=== PATIENT | male | born 1965 | race Caucasian/White ===

== ENCOUNTER 2018-04-04 17:57 | Inpatient (IN) | END 2018-04-07 14:55 | disposition home or self-care (01) | DRG 684 ==

== ENCOUNTER 2019-03-10 11:11 | Day surgery (SDC) | payer MEDICARE, OTHER ==
[~2019-03-10] VITALS: Ht 165.1 cm; Wt 81.1 kg
[2019-03-10] VITALS (9 sets, daily range): BP systolic 98–159; BP diastolic 53–94; PULSE 84–92; RESP 13–21; Ht 165.1 cm; Wt 81.1 kg
[~2019-03-10 11:11] MED LIST: AMLO5TAB4 PO; ATOR20TA38 PO; CALC0.255 PO; CALC667C PO; CARV6.25 PO; ERGO500013 PO; FURO-110 PO; GABA100C14 PO; GLIM2TAB PO; HYDR-3672 PO; LOSA100T15 PO; LOSA25TA2 PO; NAPR-985 PO; NEPH PO; SITA50TA2 PO; [UNRECOGNIZED DRUG - CODE] PO
[2019-03-10] MEDS ORDERED: HEPARIN 1000 UNITS/ML 10 ML INJ ONE ×3 (11:39→16:21)
[2019-03-10] MEDS ORDERED: LIDOCAINE 1% (MPF) 30 ML INJ ONE ×2 (11:39→15:20)
[2019-03-10] MEDS ORDERED: GELATIN SIZE 100 SPONGE ONE (15:20)
[2019-03-10] MEDS ORDERED: THROMBIN 5000 UNIT (RECOTHROM) VIAL ONE (15:20)
[2019-03-10] MEDS ORDERED: BUPIVACAINE 0.5% (SDV) 30 ML INJ ONE (15:20)
[2019-03-10] MEDS ORDERED: ROPIVACAINE 0.5 % 30 ML VIAL ONE (15:32)
[2019-03-10] MEDS ORDERED: MIDAZOLAM 1 MG/ML 2 ML INJ ONE (15:35)
[2019-03-10] MEDS ORDERED: ACETAMINOPHEN 325 MG TAB PO PRN (17:00)
[2019-03-10] MEDS ORDERED: ONDANSETRON 4 MG INJ IV PRN ×2 (17:00→17:30)
[2019-03-10] MEDS ORDERED: ONDANSETRON 4 MG INJ ONE (17:03)
[2019-03-10] MEDS ORDERED: PROPOFOL 20 ML ONE (17:03)
[2019-03-10] MEDS ORDERED: LIDOCAINE 2% (SDV) 5 ML INJ ONE (17:03)
[2019-03-10] MEDS ORDERED: CEFAZOLIN 1 GM INJ ONE (17:03)
[2019-03-10] MEDS ORDERED: FENTAnyl 50 MCG/ML VIAL IV PRN (17:30)
[2019-03-10] MEDS ORDERED: HYDROmorphONE 1 MG/5 ML IV SYRINGE IV PRN ×2 (17:30)
== END 2019-03-10 18:44 | disposition home or self-care (01) ==
LOC: SDS 11:11
PROVIDERS: ATTEND Surgery
DX: N18.6 End stage renal disease (principal); I12.0 Hypertensive chronic kidney disease with stage 5 chronic kidney disease or end stage renal disease; E11.9 Type 2 diabetes mellitus without complications; E66.01 Morbid (severe) obesity due to excess calories; Z68.29 Body mass index [BMI] 29.0-29.9, adult
CPT/HCPCS: 36821; 71045; 80053; 82962; 85025; 85651; 93005; C1725; J0690; J1644; J2250; J2405; J2795; J3010